=== PATIENT | female | born 1995 | race Caucasian/White ===

== ENCOUNTER 2017-07-24 07:38 | Day surgery (SDC) | payer BC, MEDICAID ==
[~2017-07-24 07:38] MED LIST: ACETAMINOPHEN 1,000 MG/100 ML BTL IV ONE; FAMOTIDINE 20MG TABLET PO ONE; MECLIZINE 25 MG TABLET PO ONE; METOCLOPRAMIDE 10 MG TABLET PO ONE
[2017-07-24] MEDS ORDERED: BUPIVACAINE 0.25% W/EPI MPF 30ML VIAL IVP ONE (07:39)
[2017-07-24] MEDS ORDERED: ONDANSETRON HCL IV 4 MG/2 ML VIAL IVP ONE (07:39)
[2017-07-24] MEDS ORDERED: PROPOFOL 10 MG/ML VIAL IV ONE (07:39)
[2017-07-24] MEDS ORDERED: HYDROCODONE/APAP 5/325MG TABLET PO ONE (07:39)
[2017-07-24] MEDS ORDERED: HYDROMORPHONE HCL 2 MG/ML VIAL IV ONE (07:39)
[2017-07-24] MEDS ORDERED: KETOROLAC 30 MG/ML VIAL IVP ONE (07:39)
[2017-07-24] MEDS ORDERED: ROCURONIUM BROMIDE 50MG/5ML VIAL IV ONE (07:39)
[2017-07-24] MEDS ORDERED: SEVOFLURANE 250 ML INH ONE (07:39)
[2017-07-24] MEDS ORDERED: LIDOCAINE 2% MDV (20MG/ML) 20ML VIAL IV ONE (07:39)
[2017-07-24] MEDS ORDERED: SUGAMMADEX SODIUM 200 MG/2 ML VIAL IV ONE (07:39)
[2017-07-24] MEDS ORDERED: LABETALOL HCL 5MG/ML, 20ML VIAL IVPB ONE (07:39)
[2017-07-24 07:56] LABS: HEMATOCRIT 39.9 % (35.0-47.0); HEMOGLOBIN 12.5 gm/dl (11.6-16.0)
--- NOTE | 2017-07-25 12:30 | Operative Note ---
DATE OF SURGERY: 07/24/2017 Surgeon: Bautista Anne DO PREOPERATIVE DIAGNOSIS: Cholelithiasis and chronic cholecystitis. POSTOPERATIVE DIAGNOSIS: Cholelithiasis and chronic cholecystitis. OPERATION: Laparoscopic cholecystectomy. Indication: The patient is a 22-year-old female who is having ongoing right subcostal postprandial pain. Imaging studies were consistent with cholelithiasis with a clinical history of recurrent biliary colic. We discussed cholecystectomy versus medical management. She desired surgical intervention. Risks include but are not limited to bleeding, infection, ductal injury, possible conversion to open, postoperative bile leak. She understood this fully. PROCEDURE: Therefore, after consent was signed and questions answered, she was taken to the operating room and placed in a supine position. General anesthesia was administered per the department of anesthesia. The patient's abdomen was prepped and draped in the usual sterile fashion. The infraumbilical region was anesthetized with a total of 3 mL of 0.25% Sensorcaine with epinephrine. A 2 cm infraumbilical incision was made. This was carried down to the anterior rectus fascia. This was incised. Shabana clamps were placed on the fascial edges and brought up into the wound. Stay sutures of 0 Vicryl were placed. Posterior rectus sheath was identified and incised. The peritoneal cavity was entered bluntly. At this time, a 10 mm blunt Saúl port was placed. Adequate pneumoperitoneum was established. Under direct visualization, additional 5 mm epigastric and two 5 mm right subcostal ports were placed. The gallbladder was identified in the subhepatic space. This was lifted in a cephalad and lateral direction over the angle of Calot. The hepatocystic triangle was thoroughly dissected out. There was no aberrant anatomy, no posterior ductal structures. The cystic duct and cystic artery were clearly identified. I could see the common bile duct medial to this as well. The cystic artery was taken down with the Giacomo harmonic. Cystic duct was triply clipped and cut in a standard fashion. Gallbladder was then taken off the liver bed with the Giacomo harmonic. This was extracted infraumbilically. Right upper quadrant was rechecked and found to be hemostatic. No bleeding. No bile leaking. No bowel injury noted. The patient was leveled out. The pneumoperitoneum was released. All ports were removed. The fascia was closed with 0 Vicryl in a [id number] fashion. The skin of all ports was closed with 4-0 Vicryl. The patient was taken to the recovery room in satisfactory condition. FINDINGS AT THE TIME OF SURGERY: Chronic cholecystitis. CC: Dr. Fatimah SAWYER
== END 2017-07-24 11:00 | disposition home or self-care (01) ==
LOC: SUR 07:38
PROVIDERS: ATTEND Surgery
DX: K80.10 Calculus of gallbladder with chronic cholecystitis without obstruction (principal); Z72.0 Tobacco use
CPT/HCPCS: 85018; 85014; 81025; 47562; 00790; J1885; J2405; J1170; J3490

== ENCOUNTER 2018-06-02 14:04 | Emergency (ER) | payer BC, MEDICAID ==
--- NOTE | 2018-06-02 15:09 | Emergency Department Record ---
History of Present Illness - General Chief complaint: Cold Stated complaint: COLD,SORE THROAT Time Seen by Provider: 06/02/18 14:35 Source: Patient Mode of Arrival: Ambulatory Limitations: No limitations - History of Present Illness Initial comments: pt has green rhinitis, cough, sore throat, body aches complaint: Sore throat Onset/Timin -: Days(s) Severity: Moderate Severity scale (1-10): 5 Quality: Aching Consistency: Constant, Intermittent Improves with: None Worsens with: None Associated Symptoms: Cough, Pain with swallowing, Rhinorrhea, Sore throat - Related Data Previous Rx's Medication Instructions Recorded Azithromycin [Zithromax] 250 mg PO DAILY #6 tab 06/02/18 Allergies Allergy/AdvReac Type Severity Reaction Status Date / Time No Known Drug Allergies Allergy Verified 06/02/18 14:12 Travel Screening - Travel/Exposure Within Last 30 Days Have you traveled within the last 30 days?: No - Travel/Exposure Within Last Year Have you traveled outside the [place] in the last year?: No - Additonal Travel Details Have you been exposed to anyone with a communicable illness?: No - Travel Symptoms Symptom Screening: None Review of Systems Reviewed: No additional complaints except as noted below Constitutional: Reports: As per HPI. Denies: Chills, Fever, Malaise, Night sweats, Weakness, Weight change Eyes: Reports: As per HPI. Denies: Eye discharge, Eye pain, Photophobia, Vision change ENT: Reports: As per HPI. Denies: Congestion, Dental pain, Ear pain, Epistaxis , Hearing loss, Throat pain Respiratory: Reports: As per HPI. Denies: Cough, Dyspnea, Hemoptysis, Stridor, Wheezes Cardiovascular: Reports: As per HPI. Denies: Arrhythmia, Chest pain, Dyspnea on exertion, Edema, Murmurs, Orthopnea, Palpitations, Paroxysmal nocturnal dyspnea, Rheumatic Fever, Syncope Endocrine: Reports: As per HPI. Denies: Fatigue, Heat or cold intolerance, Polydipsia, Polyuria Gastrointestinal: Reports: As per HPI. Denies: Abdominal pain, Constipation, Diarrhea, Hematemesis, Hematochezia, Melena, Nausea, Vomiting Genitourinary: Reports: As per HPI. Denies: Abnormal menses, Discharge, Dyspareunia, Dysuria, Frequency, Hematuria, Incontinence, Retention, Urgency Musculoskeletal: Reports: As per HPI. Denies: Arthralgia, Back pain, Gout, Joint swelling, Myalgia, Neck pain Skin: Reports: As per HPI. Denies: Bruising, Change in color, Change in hair/ nails, Lesions, Pruritus, Rash Neurological: Reports: As per HPI. Denies: Abnormal gait, Confusion, Headache, Numbness, Paresthesias, Seizure, Tingling, Tremors, Vertigo, Weakness Psychiatric: Reports: As per HPI. Denies: Anxiety, Auditory hallucinations, Depression, Homicidal thoughts, Suicidal thoughts, Visual hallucinations Hematological/Lymphatic: Reports: As per HPI. Denies: Anemia, Blood Clots, Easy bleeding, Easy bruising, Swollen glands Past Medical History - SOCIAL HISTORY Smoking Status: Current some day smoker Alcohol Use: None Drug Use: None - RESPIRATORY Hx Respiratory Disorders: Yes Comment:: some congestion in the mornings lately - CARDIOVASCULAR Hx Cardio Disorders: No - NEURO Hx Neuro Disorders: Yes Hx Dizziness: Yes (recent) - GI Hx GI Disorders: Yes Hx Abdominal Pain: Yes Hx Nausea/Vomiting: Yes - Hx Genitourinary Disorders: No - ENDOCRINE Hx Endocrine Disorders: No - MUSCULOSKELETAL Hx Musculoskeletal Disorders: No - PSYCH Hx Psych Problems: Yes Hx Anxiety: Yes (on meds before ) - HEMATOLOGY/ONCOLOGY Hx Hematology/Oncology Disorders: Yes Hx Anemia: Yes (with ) Family Medical History Any Significant Family History?: No Hx Heart Disease: Father Physical Exam - General General Appearance: Alert, Oriented x3, Cooperative, Mild distress - Head Head exam: Normal inspection - Eye Eye exam: Normal appearance, PERRL, EOMI Pupils: Normal accommodation - ENT ENT exam: Normal exam, Mucous membranes moist, Normal external ear exam, Normal orophraynx, TM's normal bilaterally Ear exam: Normal external inspection. negative: External canal tenderness Nasal Exam: Normal inspection. negative: Discharge, Sinus tenderness Mouth exam: Normal external inspection, Tongue normal Teeth exam: Normal inspection. negative: Dental caries Throat exam: Tonsillar erythema. negative: Tonsillar exudate - Neck Neck exam: Normal inspection, Full ROM. negative: Tenderness - Respiratory Respiratory exam: Normal lung sounds bilaterally. negative: Respiratory distress - Cardiovascular Cardiovascular Exam: Normal rhythm, Normal heart sounds, Tachycardia - GI/Abdominal GI/Abdominal exam: Soft, Normal bowel sounds. negative: Tenderness - Rectal Rectal exam: Deferred - exam: Deferred - Extremities Extremities exam: Normal inspection, Full ROM, Normal capillary refill. negative: Tenderness - Back Back exam: Reports: Normal inspection, Full ROM. Denies: Muscle spasm, Rash noted, Tenderness - Neurological Neurological exam: Alert, CN II-XII intact, Normal gait, Oriented X3 - Psychiatric Psychiatric exam: Normal affect, Normal mood - Skin Skin exam: Dry, Intact, Normal color, Warm Course Vital Signs 06/02/18 14:13 Temperature 97.7 F Pulse Rate [ 106 H Pulse Ox Probe] Respiratory 17 Rate Blood Pressure 124/85 [Left Arm] Pulse Ox 96 Medical Decision Making - Lab Data Lab Results 06/02/18 Range/Units 14:15 Group A Strep Screen Negative (NEGATIVE) Disposition Disposition: Discharge Clinical Impression: Pharyngitis Qualifiers: Pharyngitis/tonsillitis etiology: unspecified etiology Qualified Code(s): J02.9 - Acute pharyngitis, unspecified Sinusitis Qualifiers: Sinusitis location: unspecified location Chronicity: acute Recurrence: non- recurrent Qualified Code(s): J01.90 - Acute sinusitis, unspecified Disposition: Home, Self-Care Condition: (1) Good Instructions: Pharyngitis (ED), Sinusitis (ED) Additional Instructions: follow up with family doctor. return sooner if worse. motrin w food Prescriptions: Azithromycin [Zithromax] 250 mg PO DAILY #6 tab Forms: Patient Portal Access, Return to Work/School Quality - Quality Measures Quality Measures: Adult Sinusitis (>18yr) - Adult Bronchitis ICD10 Codes Entered: No Is patient being admitted: No Avoidance of ABX w/Bronchitis: Medical Reason for prescribing ABX [G9712] Medical Reason For Rx: Acute Pharyngitis - Adult Sinusitis: Abx Overuse Quality Measure: Measure #331: Adult Sinusitis Abx Overuse ICD10 Codes Entered: No Onset of symptoms over 10 days: No Presumed Bacterial: Yes Antibiotic Prescribed: Yes Adult Sinusitis: Antibiotic Within 10 Days of Symptoms: Medical Reason for Rx Within 10 Days [G9505] Reason for Prescription: Presumed Bacterial - Adult Sinusitis: Bacterial w/Abx Quality Measure: Measure #332: Adult Bacterial Sinusitis Correct Abx Use Adult Sinusitis: Appropriate Antibiotic: NOT Prescribed, No Reason Documented [ G9314] - Adult Sinusitis: CT Use Quality Measure: Measure #333: Adult Sinusitis Adult Sinusitis: CT for Acute Sinusitis: < CT NOT ordered or received within 28 Days > [G9740] - Blood Pressure Screening Does Patient Have Any of the Following: No Blood Pressure Classification: Pre-Hypertensive BP Reading Systolic Measurement: 124 Diastolic Measurement: 85 Screening for High Blood Pressure: < Pre-Hypertensive BP, F/U Documented > [ G8950] Pre-Hypertensive Follow-up Interventions: Follow-up with rescreen every year.
== END 2018-06-02 15:33 | disposition home or self-care (01) ==
LOC: ER 14:04
DX: J02.9 Acute pharyngitis, unspecified (principal); J01.90 Acute sinusitis, unspecified; F17.210 Nicotine dependence, cigarettes, uncomplicated
CPT/HCPCS: 87880; 99282

== ENCOUNTER 2018-08-26 11:38 | Emergency (ER) | payer BC, MEDICAID ==
--- NOTE | 2018-08-26 12:49 | Emergency Department Record ---
History of Present Illness - General Chief Complaint: Abdominal Pain Stated Complaint: RLQ PAIN Time Seen by Provider: 08/26/18 12:27 Mode of Arrival: Ambulatory - History of Present Illness Initial Comments: 4 days of abdominal pain right upper quad started 4 days ago PMH GB removal one year ago, Otfd [place] as a child Onset/Timin -: Days(s) Location: RUQ Radiation: RUQ Migration to: No migration Severity: Moderate Severity scale (1-10): 6 Quality: Sharp, Stabbing Consistency: Constant Improves With: Nothing Worsens With: Nothing Associated Symptoms: Nausea, Vomiting - Related Data LMP (females 10-50): This week Previous Rx's Medication Instructions Recorded Amoxicillin/Potassium Clav 1 each PO TID #30 tablet 08/26/18 [Augmentin 500-125 Tablet] Tramadol HCl [Ultram] 50 mg PO Q8H #9 tab 08/26/18 Allergies Allergy/AdvReac Type Severity Reaction Status Date / Time No Known Drug Allergies Allergy Verified 06/02/18 14:12 Travel Screening - Travel/Exposure Within Last 30 Days Have you traveled within the last 30 days?: No - Travel/Exposure Within Last Year Have you traveled outside the [place] in the last year?: No - Additonal Travel Details Have you been exposed to anyone with a communicable illness?: No - Travel Symptoms Symptom Screening: None Review of Systems Reviewed: No additional complaints except as noted below Constitutional: Reports: As per HPI. Denies: Chills, Fever, Malaise, Night sweats, Weakness, Weight change Eyes: Reports: As per HPI. Denies: Eye discharge, Eye pain, Photophobia, Vision change ENT: Reports: As per HPI. Denies: Congestion, Dental pain, Ear pain, Epistaxis , Hearing loss, Throat pain Respiratory: Reports: As per HPI. Denies: Cough, Dyspnea, Hemoptysis, Stridor, Wheezes Cardiovascular: Reports: As per HPI. Denies: Arrhythmia, Chest pain, Dyspnea on exertion, Edema, Murmurs, Orthopnea, Palpitations, Paroxysmal nocturnal dyspnea, Rheumatic Fever, Syncope Endocrine: Reports: As per HPI. Denies: Fatigue, Heat or cold intolerance, Polydipsia, Polyuria Gastrointestinal: Reports: As per HPI, Abdominal pain. Denies: Constipation, Diarrhea, Hematemesis, Hematochezia, Melena, Nausea, Vomiting Genitourinary: Reports: As per HPI. Denies: Abnormal menses, Discharge, Dyspareunia, Dysuria, Frequency, Hematuria, Incontinence, Retention, Urgency Musculoskeletal: Reports: As per HPI. Denies: Arthralgia, Back pain, Gout, Joint swelling, Myalgia, Neck pain Skin: Reports: As per HPI. Denies: Bruising, Change in color, Change in hair/ nails, Lesions, Pruritus, Rash Neurological: Reports: As per HPI. Denies: Abnormal gait, Confusion, Headache, Numbness, Paresthesias, Seizure, Tingling, Tremors, Vertigo, Weakness Psychiatric: Reports: As per HPI. Denies: Anxiety, Auditory hallucinations, Depression, Homicidal thoughts, Suicidal thoughts, Visual hallucinations Hematological/Lymphatic: Reports: As per HPI. Denies: Anemia, Blood Clots, Easy bleeding, Easy bruising, Swollen glands Past Medical History - SOCIAL HISTORY Smoking Status: Current some day smoker Alcohol Use: Rare Drug Use: None - RESPIRATORY Hx Respiratory Disorders: Yes Comment:: some congestion in the mornings lately - CARDIOVASCULAR Hx Cardio Disorders: No - NEURO Hx Neuro Disorders: Yes Hx Dizziness: Yes (recent) - GI Hx GI Disorders: Yes Hx Abdominal Pain: Yes Hx Nausea/Vomiting: Yes - Hx Genitourinary Disorders: No - ENDOCRINE Hx Endocrine Disorders: No - MUSCULOSKELETAL Hx Musculoskeletal Disorders: No - PSYCH Hx Psych Problems: Yes Hx Anxiety: Yes (on meds before ) - HEMATOLOGY/ONCOLOGY Hx Hematology/Oncology Disorders: Yes Hx Anemia: Yes (with ) Family Medical History Any Significant Family History?: Yes Hx Heart Disease: Father Physical Exam - General General Appearance: Alert, Oriented x3, Cooperative, No acute distress - Head Head exam: Normal inspection - Eye Eye exam: Normal appearance, PERRL Pupils: Normal accommodation - ENT ENT exam: Normal exam, Mucous membranes moist, Normal external ear exam, Normal orophraynx, TM's normal bilaterally Ear exam: Normal external inspection. negative: External canal tenderness Nasal Exam: Normal inspection. negative: Discharge, Sinus tenderness Mouth exam: Normal external inspection, Tongue normal Teeth exam: Normal inspection. negative: Dental caries Throat exam: Normal inspection. negative: Tonsillar erythema, Tonsillar exudate - Neck Neck exam: Normal inspection, Full ROM. negative: Tenderness - Respiratory Respiratory exam: Normal lung sounds bilaterally. negative: Respiratory distress - Cardiovascular Cardiovascular Exam: Regular rate, Normal rhythm, Normal heart sounds - GI/Abdominal GI/Abdominal exam: Soft, Normal bowel sounds, Tenderness (right upper quad pain) - Rectal Rectal exam: Deferred - exam: Deferred - Extremities Extremities exam: Normal inspection, Full ROM, Normal capillary refill. negative: Tenderness - Back Back exam: Reports: Normal inspection, Full ROM. Denies: Muscle spasm, Rash noted, Tenderness - Neurological Neurological exam: Alert, Normal gait, Oriented X3, Reflexes normal - Psychiatric Psychiatric exam: Normal affect, Normal mood - Skin Skin exam: Dry, Intact, Normal color, Warm Course Vital Signs 08/26/18 12:02 Temperature 98.7 F Pulse Rate [ 87 Left] Respiratory 16 Rate Blood Pressure 124/88 [Left Arm] Pulse Ox 97 - Reevaluation(s) Reevaluation #1: patient feeling better 08/26/18 16:30 Medical Decision Making - Data Complexity MDM Data: Labs Ordered and/or Reviewed, X-Ray Ordered and/or Reviewed (CT of abd inflamation of the ascending colon mild) - Lab Data Result diagrams: 08/26/18 12:55 08/26/18 12:55 Disposition Clinical Impression: Colitis Abdominal pain Qualifiers: Abdominal location: left upper quadrant Qualified Code(s): R10.12 - Left upper quadrant pain Disposition: Home, Self-Care Condition: (1) Good Instructions: Colitis (ED) Additional Instructions: follow up prema Sheridan in 2 days eat bland foods ultram for pain take augmentin three times a day Prescriptions: Amoxicillin/Potassium Clav [Augmentin 500-125 Tablet] 1 each PO TID #30 tablet Tramadol HCl [Ultram] 50 mg PO Q8H #9 tab Forms: Patient Portal Access Quality - Quality Measures Quality Measures: N/A - Blood Pressure Screening Does Patient Have Any of the Following: No Blood Pressure Classification: Pre-Hypertensive BP Reading Systolic Measurement: 121 Diastolic Measurement: 77 Screening for High Blood Pressure: < Pre-Hypertensive BP, F/U Documented > [ G8950] Pre-Hypertensive Follow-up Interventions: Referral to alternative/primary care provider.
[2018-08-26 12:58] LABS: BASO % 0.4 % (0-6); EOS % 2.8 % (0-6); GRAN % 69.5 % (47-80); HEMOGLOBIN 13.9 gm/dl (11.6-16.0); LYMPH % 22.4 % (16-45); MEAN CELL VOLUME 85.8 fl (81-97); MEAN CORPUSCULAR HEMOGLOBIN 27.7 pg (27-33); MEAN CORPUSCULAR HGB CONC 32.3 g/dl (32-36); MEAN PLATELET VOLUME 11.6 fl (7.4-10.4); MONO % 4.9 % (0-9); PLATELET COUNT 320 K/uL (130-400); RED BLOOD COUNT 5.01 M/uL (3.80-5.40); RED CELL DISTRIBUTION WIDTH 14.4 % (11.5-14.5); WHITE BLOOD COUNT W/O DIFF 9.5 K/uL (4.2-12.2)
[2018-08-26 13:02] LABS: URINE APPEARANCE CLEAR; URINE BILIRUBIN NEGATIVE (NEGATIVE); URINE BLOOD NEGATIVE (NEGATIVE); URINE COLOR YELLOW; URINE GLUCOSE (UA) NEGATIVE (NEGATIVE); URINE KETONE NEGATIVE (NEGATIVE); URINE LEUKOCYTE ESTERASE NEGATIVE (NEGATIVE); URINE NITRITE NEGATIVE (NEGATIVE); URINE PROTEIN NEGATIVE (NEGATIVE); URINE UROBILINOGEN 0.2 E.U./dL (0.20 - 1.00)
[2018-08-26] MEDS: KETOROLAC 30 MG/ML VIAL IVP ONE (13:07)
[2018-08-26] MEDS: ONDANSETRON HCL IV 4 MG/2 ML VIAL IVP ONE (13:07)
[2018-08-26] MEDS: 0.9 % SODIUM CHLORIDE 1,000 ML BAG IV ONE (13:08)
[2018-08-26 13:10] LABS: BLOOD UREA NITROGEN 14 mg/dL (6-20); CREATININE 0.6 mg/dL (0.5-0.9); EST GLOMERULAR FILTRATION RATE > 60 mL/min
[2018-08-26 13:11] LABS: TOTAL PROTEIN 8.1 g/dL (6.6-8.7)
[2018-08-26 13:13] LABS: GLUCOSE,RANDOM 91 mg/dL (74-109)
[2018-08-26 13:15] LABS: ALBUMIN 4.7 g/dL (4.0-5.0); ALKALINE PHOSPHATASE 95 U/L (35-104); ALT/SGPT 22 U/L (<33); AST/SGOT 22 U/L (10.0-35.0); LIPASE 24 U/L (13-60)
[2018-08-26 13:17] LABS: BILIRUBIN,DIRECT < 0.2 mg/dL (0-0.3)
--- NOTE | 2018-08-27 14:43 | CT SCAN REPORT ---
EXAM: CT OF THE ABDOMEN AND PELVIS WITHOUT CONTRAST HISTORY: RIGHT LOWER QUADRANT PAIN WITH NAUSEA AND VOMITING TIMES FOUR DAYS. TECHNIQUE: Noncontrast images are obtained from the dome of the diaphragm to the symphysis pubis. FINDINGS: The lung bases and pleural spaces are clear. The liver is normal. The gallbladder is surgically absent. The pancreas and spleen are normal. The kidneys and adrenal glands demonstrate no soft tissue mass, hydronephrosis, or suspicious calcification. The bowel is unremarkable. There is mild inflammation in the soft tissues anterior to the ascending colon without focal fluid collection, free air, or bowel wall thickening. There are no adjacent diverticula. The appendix is distant from this finding and is itself unremarkable. The remainder of the examination demonstrates only mild constipation. The pelvic structures are intact. IMPRESSION: MILD INFLAMMATION ANTERIOR TO THE ASCENDING COLON. THE FINDINGS COULD REPRESENT THE SEQUELA OF OLD POSTOPERATIVE CHANGE, ACUTE EPIPLOIC APPENDAGITIS, OR THE SEQUELA OF OTHER PRIOR INFLAMMATORY DISEASE. CONSIDER A FOLLOW-UP CT EXAMINATION IN TWO TO FOUR WEEKS. JOB NUMBER: [id number] MTDD
== END 2018-08-26 16:46 | disposition home or self-care (01) ==
LOC: ER 11:38
DX: K52.9 Noninfective gastroenteritis and colitis, unspecified (principal); R10.11 Right upper quadrant pain; R11.2 Nausea with vomiting, unspecified; F17.210 Nicotine dependence, cigarettes, uncomplicated
CPT/HCPCS: 99284 ×2; 96374; 96375; 83690; 85025; 80076; 80048; 81003; 81025; 74176; J1885; J2405; J7030

== ENCOUNTER 2018-11-21 16:03 | Emergency (ER) | payer BC ==
[2018-11-21 16:54] LABS: INFLUENZA A NEGATIVE (NEGATIVE); INFLUENZA B NEGATIVE (NEGATIVE)
--- NOTE | 2018-11-21 17:36 | Emergency Department Record ---
History of Present Illness - General Chief Complaint: Cough Stated Complaint: COUGH,VOMITING,BACK PAIN Time Seen by Provider: 11/21/18 17:18 Source: Patient Mode of Arrival: Ambulatory - History of Present Illness Initial Comments: sore throat and congestion and body aches and cough. Started one day ago Onset/Timin -: Hour(s) Severity scale (1-10): 7 Consistency: Constant - Related Data Previous Rx's Medication Instructions Recorded Oseltamivir Phosphate [Tamiflu] 75 mg PO BID #10 capsule 11/21/18 Allergies Allergy/AdvReac Type Severity Reaction Status Date / Time No Known Drug Allergies Allergy Verified 06/02/18 14:12 Travel Screening - Travel/Exposure Within Last 30 Days Have you traveled within the last 30 days?: No Review of Systems Reviewed: No additional complaints except as noted below Constitutional: Reports: As per HPI. Denies: Chills, Fever, Malaise, Night sweats, Weakness, Weight change Eyes: Reports: As per HPI. Denies: Eye discharge, Eye pain, Photophobia, Vision change ENT: Reports: As per HPI. Denies: Congestion, Dental pain, Ear pain, Epistaxis , Hearing loss, Throat pain Respiratory: Reports: As per HPI. Denies: Cough, Dyspnea, Hemoptysis, Stridor, Wheezes Cardiovascular: Reports: As per HPI. Denies: Arrhythmia, Chest pain, Dyspnea on exertion, Edema, Murmurs, Orthopnea, Palpitations, Paroxysmal nocturnal dyspnea, Rheumatic Fever, Syncope Endocrine: Reports: As per HPI. Denies: Fatigue, Heat or cold intolerance, Polydipsia, Polyuria Gastrointestinal: Reports: As per HPI. Denies: Abdominal pain, Constipation, Diarrhea, Hematemesis, Hematochezia, Melena, Nausea, Vomiting Genitourinary: Reports: As per HPI. Denies: Abnormal menses, Discharge, Dyspareunia, Dysuria, Frequency, Hematuria, Incontinence, Retention, Urgency Musculoskeletal: Reports: As per HPI. Denies: Arthralgia, Back pain, Gout, Joint swelling, Myalgia, Neck pain Skin: Reports: As per HPI. Denies: Bruising, Change in color, Change in hair/ nails, Lesions, Pruritus, Rash Neurological: Reports: As per HPI. Denies: Abnormal gait, Confusion, Headache, Numbness, Paresthesias, Seizure, Tingling, Tremors, Vertigo, Weakness Psychiatric: Reports: As per HPI. Denies: Anxiety, Auditory hallucinations, Depression, Homicidal thoughts, Suicidal thoughts, Visual hallucinations Hematological/Lymphatic: Reports: As per HPI. Denies: Anemia, Blood Clots, Easy bleeding, Easy bruising, Swollen glands Past Medical History - SOCIAL HISTORY Smoking Status: Current some day smoker Alcohol Use: None Drug Use: None - RESPIRATORY Hx Respiratory Disorders: Yes Comment:: some congestion in the mornings lately - CARDIOVASCULAR Hx Cardio Disorders: No - NEURO Hx Neuro Disorders: Yes Hx Dizziness: Yes (recent) - GI Hx GI Disorders: Yes Hx Abdominal Pain: Yes Hx Nausea/Vomiting: Yes - Hx Genitourinary Disorders: No - ENDOCRINE Hx Endocrine Disorders: No - MUSCULOSKELETAL Hx Musculoskeletal Disorders: No - PSYCH Hx Psych Problems: Yes Hx Anxiety: Yes (on meds before ) - HEMATOLOGY/ONCOLOGY Hx Hematology/Oncology Disorders: Yes Hx Anemia: Yes (with ) Family Medical History Any Significant Family History?: Yes Hx Heart Disease: Father Physical Exam - General General Appearance: Alert, Oriented x3, Cooperative, No acute distress - Head Head exam: Normal inspection - Eye Eye exam: Normal appearance, PERRL Pupils: Normal accommodation - ENT ENT exam: Normal exam, Mucous membranes moist, Normal external ear exam, Normal orophraynx, TM's normal bilaterally Ear exam: Normal external inspection. negative: External canal tenderness Nasal Exam: Normal inspection. negative: Discharge, Sinus tenderness Mouth exam: Normal external inspection, Tongue normal Teeth exam: Normal inspection. negative: Dental caries Throat exam: Normal inspection. negative: Tonsillar erythema, Tonsillar exudate - Neck Neck exam: Normal inspection, Full ROM. negative: Tenderness - Respiratory Respiratory exam: Normal lung sounds bilaterally. negative: Respiratory distress - Cardiovascular Cardiovascular Exam: Regular rate, Normal rhythm, Normal heart sounds - GI/Abdominal GI/Abdominal exam: Soft, Normal bowel sounds. negative: Tenderness - Rectal Rectal exam: Deferred - exam: Deferred - Extremities Extremities exam: Normal inspection, Full ROM, Normal capillary refill. negative: Tenderness - Back Back exam: Reports: Normal inspection, Full ROM. Denies: Muscle spasm, Rash noted, Tenderness - Neurological Neurological exam: Alert, Normal gait, Oriented X3, Reflexes normal - Psychiatric Psychiatric exam: Normal affect, Normal mood - Skin Skin exam: Dry, Intact, Normal color, Warm Course Vital Signs 11/21/18 16:11 Temperature 98.4 F Pulse Rate 100 H Respiratory 20 Rate Blood Pressure 120/80 Pulse Ox 97 Medical Decision Making - Data Complexity MDM Data: Labs Ordered and/or Reviewed (flu and strep negative) - Lab Data Lab Results 11/21/18 Range/Units 16:30 Influenza Type A Ag Negative (NEGATIVE) Influenza Type B Ag Negative (NEGATIVE) Disposition Clinical Impression: Viral infection Pharyngitis Qualifiers: Pharyngitis/tonsillitis etiology: unspecified etiology Qualified Code(s): J02.9 - Acute pharyngitis, unspecified Disposition: Home, Self-Care Condition: (1) Good Instructions: Pharyngitis (ED) Additional Instructions: follow up with family Dr in 2-5 days Prescriptions: Oseltamivir Phosphate [Tamiflu] 75 mg PO BID #10 capsule Forms: Patient Portal Access Time of Disposition: 17:36 Quality - Quality Measures Quality Measures: N/A - Blood Pressure Screening Does Patient Have Any of the Following: No Blood Pressure Classification: Pre-Hypertensive BP Reading Systolic Measurement: 120 Diastolic Measurement: 80 Screening for High Blood Pressure: < Pre-Hypertensive BP, F/U Documented > [ G8950] Pre-Hypertensive Follow-up Interventions: Referral to alternative/primary care provider.
== END 2018-11-21 18:18 | disposition home or self-care (01) ==
LOC: ER 16:03
DX: J02.9 Acute pharyngitis, unspecified (principal); B34.9 Viral infection, unspecified; R05 Cough; R51 Headache; F17.210 Nicotine dependence, cigarettes, uncomplicated
CPT/HCPCS: 87400; 87880; 99282; 99283